=== PATIENT | female | born 1990 | race Caucasian/White ===

== ENCOUNTER 2017-03-05 18:11 | Emergency (ER) | payer OTHER ==
[~2017-03-05] VITALS: Ht 165.1 cm; Wt 65.0 kg
[2017-03-05 18:13] VITALS: BP 120/76; PULSE 102; RESP 18; O2SAT 99
--- NOTE | 2017-03-05 18:27 | ED.REPORT ---
HPI-Trauma Minor / Fall Date of Service March 05, 2017 ED Provider: Kirk Harper MD. Patient is a 26 year old female who presents to the ED complaining of left knee pain onset 1200 this afternoon. Associated symptoms include swelling of her left knee. The patient reports that she slipped and fell while trying to get out of her RV and landed on her left knee and hands, landing on a susan. She reports that she is currently on her menstrual cycle. Nursing Notes Stated Complaint: HURT LEFT KNEE IN FALL Chief Complaint: Extremity Trauma Nursing Notes Reviewed: Yes Allergies: Coded Allergies: Penicillins (Verified Allergy, Mild, Unknown - given as an , 03/05/17) General Time Seen by MD: 18:26 Chief Complaint Extremity pain (left knee) Hx Obtained From: Patient Arrived By: Walk-in Onset Occurred: 5 - 8 hours ago Symptom Duration: Since onset Caused by: Fall on ground Location: Knee left Recent Healthcare: No recent doctor visit, No recent hospitalization Similar Sx Previous: No Past Medical History Past Medical History pulmonary nodules Past Surgical History Reports: Appendectomy Smoking History Unknown if Ever Smoker Social History Other Social History: Local resident Ambulatory Status Independent Review of Systems Musculoskeletal: Reports: Extremity pain (left knee), Extremity swelling (left knee) Complete sys rev & neg: except as marked. Physical Exam Physical Exam Notes: needs tetanus booster Initial Vital Signs Vital Signs (First) Date Time Temp Pulse Resp B/P Pulse Ox O2 Delivery O2 Flow Rate FiO2 03/05/17 18:13 36.6 102 18 120/76 99 Room Air Initial VS: Reviewed General/Constitutional: Awake, Alert, No acute distress Neck: Atraumatic, Supple, Full range of motion Head / Eyes: Atraumatic, Normocephalic, PERRL, EOMI Respiratory / Chest: Atraumatic, No respiratory distress Lower Extremity / Pelvis / MS: Neurologic intact, Vascular intact laceration to proximal and medial knee range of motion is limited due to pain tender to palpation no effusion Skin: Color NL, No rash, Warm, Dry Neurologic: Oriented X3, Speech NL, No motor deficits, No sensory deficits Psychiatric: Affect NL, Mood NL Interpretation & Diagnostics X-Ray Interpretation Xray Interpretation: IMPRESSION: No abnormality is seen in the left knee. Dictated by: Porter Trinidad M.D. on 03/05/2017 at 19:43 Approved by: Porter Trinidad M.D. on 03/05/2017 at 19:44 X-Ray Ordered: Knee left Interpretation / Wet Read by: Interpret - Radiologist Re-Eval/Medical Decision Med Decision/Clinical Course Knee pain and contusion. No effusion, normal x-ray. Knee immobilizer and crutches. Ice and ibuprofen Source of Hx: Old records Re-Evaluation/Progress : Time of Eval: 19:30 Re-Evaluation/Progress Note: Discussed results and plan for discharge. The patient understands and agrees to the plan for discharge. All questions were addressed. Counseled Regarding: Diagnosis, Lab results, Need for follow-up, When/why to return to ED Discharge & Departure Impression: Primary Impression: Contusion of left knee Encounter type: initial encounter Qualified Code: S80.02XA - Contusion of left knee, initial encounter Disposition: Home Discharge Condition All VS Reviewed: Yes Condition: Stable Patient Instructions: Contusions in Adults (ED) Additional Instructions: Your knee X-Ray was normal, there was no evidence of any fractures. Take Ibuprofen 600mg every 6 hours as needed for pain. Ice to sore areas, keep ice wrapped in a towel. Remove after 1--15 mins, can do this 3-5 times a day. Knee immobilizer for comfort, can stop using when feeling better. Follow up with a primary care physician next week. Please return to the emergency department if you develop any new or worsening symptoms including weakness of the leg or increasing pain. Referrals: [facility] Portions of this note were transcribed by Althea Garza. I, Dr. Harper personally performed the history, physical exam and medical decision-making; I reviewed and confirmed the accuracy of the information in the transcribed note. Signed by: Tiffany Buck, 03/05/17 and 1950. copies to: [facility] Kirk Harper MD March 05, 2017 18:27 Ambreen Garza March 05, 2017 18:33
[2017-03-05] MEDS ORDERED: TdaP Vaccine 0.5 mL Inj IM ONE (18:35)
--- NOTE | 2017-03-05 19:45 | DRSVH ---
PROCEDURE: X-RAY LEFT KNEE, THREE VIEWS ([id number]) INDICATIONS: fall TECHNIQUE: 3 views of the knee were acquired. COMPARISON: None. FINDINGS: Bones: No fractures or dislocations. No suspicious bony lesions. Soft tissues: No joint effusion. No suspicious soft tissue calcifications. IMPRESSION: No abnormality is seen in the left knee. Dictated by: Porter Trinidad M.D. on 03/05/2017 at 19:43 Approved by: Porter Trinidad M.D. on 03/05/2017 at 19:44
[2017-03-05 20:15] VITALS: BP 113/66; PULSE 96; O2SAT 100
== END 2017-03-05 20:15 | disposition home or self-care (01) ==
LOC: SED 18:11
DX: S80.02XA Contusion of left knee, initial encounter (principal); W10.8XXA Fall (on) (from) other stairs and steps, initial encounter; Y93.01 Activity, walking, marching and hiking; Y99.8 Other external cause status; Y92.018 Other place in single-family (private) house as the place of occurrence of the external cause; F17.200 Nicotine dependence, unspecified, uncomplicated; Z23 Encounter for immunization; Z90.89 Acquired absence of other organs; Z88.0 Allergy status to penicillin